=== PATIENT | male | born 1960 ===

== ENCOUNTER 2024-04-23 11:09 | Emergency (ER) | payer OTHER, SELFPAY ==
[2024-04-23] VITALS (8 sets, daily range): BP systolic 148–217; BP diastolic 89–107; PULSE 90–97; RESP 12–21; TEMP 36.4; O2SAT 95–99
--- NOTE | ~2024-04-23 | XR_ITS ---
EXAMINATION: XR chest 1V portable DATE: 04/23/2024 12:31 INDICATION: Hypertension. TECHNIQUE: A single frontal view of the chest was obtained on 2 radiographs. COMPARISON: None. FINDINGS: There is no pneumonia, pleural effusion, or pneumothorax. The heart size is normal. IMPRESSION: 1. No acute cardiopulmonary disease. Reviewed, dictated and finalized at location B.
--- NOTE | 2024-04-23 11:30 | ED.GENADULT ---
HPI - General Adult General Chief complaint: Recheck/Abnormal Lab/Rx Stated complaint: Elevated BP-192/121 at home Time Seen by Provider: 04/23/24 11:30 Source: patient and family Mode of arrival: ambulatory Limitations: no limitations History of Present Illness HPI narrative: 63 YEARS OLD WHITE MALE CAME TO THE ED FROM HOME BY PRIVATE CAR COMPLAINING OF ELEVATED BLOOD PRESSURE OTHERWISE ASYMPTOMATIC. PATIENT DENIES ANY FEVER, CHILLS, NAUSEA, VOMITING, HEADACHE, SHORTNESS OF BREATH, CHEST PAIN, BACK PAIN OR ABDOMINAL PAIN. PATIENT REPORTS QUITE A BIT OF STRESS and trouble sleeping LATELY., AT THE BEDSIDE PATIENT REPORT HIS BLOOD PRESSURE THIS MORNING AT HOME WAS 192/120. Related Data Allergies Allergy/AdvReac Type Severity Reaction Status Date / Time No Known Allergies Allergy Verified 04/23/24 11:10 Review of Systems Review of Systems: All systems reviewed & are unremarkable except as noted in HPI and below Exam Narrative: General appearance: Well-developed, well-nourished Skin: Normal color Head: Normocephalic, nontraumatic Eyes: Clear conjunctiva ENT: Oropharynx normal, ears normal, nose normal Neck: Supple, nontender Chest and respiratory: Airway patent, no respiratory distress, no accessory muscle use Heart: Regular rate/rhythm Abdomen: Soft, nontender, no organomegaly, quiet bowel sounds Vascular: Normal peripheral pulses, normal capillary refill. Musculoskeletal: Normal range of motion, nontender back Neurologic: Alert and oriented ?3, SUPERVISING CHEF is normal as tested, no gross motor deficit Course Vital Signs Vital signs: Vital Signs Temperature 36.4 C 04/23/24 11:12 Pulse Rate 95 04/23/24 11:12 Respiratory Rate 16 04/23/24 11:12 Blood Pressure 217/94 H 04/23/24 11:12 Pulse Oximetry 99 04/23/24 11:12 Temperature 36.4 C 04/23/24 11:12 Pulse Rate 97 04/23/24 13:01 Respiratory Rate 19 04/23/24 13:01 Blood Pressure 160/96 H 04/23/24 13:26 Pulse Oximetry 97 04/23/24 13:01 Medical Decision Making [facility] Narrative Medical decision making narrative: Patient presents with anxiety like symptoms and elevated blood pressure Vital signs showing blood pressure 217/94 Physical examination consistent with restlessness Differential diagnosis anxiety like symptoms, uncontrolled hypertension, electrolyte imbalance, dehydration Blood workup today includes CBC, CMP, troponin, BnP showed hemoglobin of 18.3, patient is aware of that elevation in the past Chest x-ray showed no acute abnormalities EKG on arrival showed normal sinus rhythm, left ventricular hypertrophy and ST-T wave changes, abnormal EKG, Patient received 1 mg of Ativan IV, blood pressure improved, currently at the time of discharge is 152/90. Patient feeling much better Diagnosis anxiety like symptoms, uncontrolled hypertension, insomnia Discharged on clonidine as needed, clonazepam The pt was discharged to home.the pt,s condition upon discharge was fair,education was provided to the pt in reference to the final impression,discharge study results,treatment,prognosis and need for follow up . Vital Signs Vital Signs: Vital Signs Temperature 36.4 C 04/23/24 11:12 Pulse Rate 95 04/23/24 11:12 Respiratory Rate 16 04/23/24 11:12 Blood Pressure 217/94 H 04/23/24 11:12 Pulse Oximetry 99 04/23/24 11:12 Temperature 36.4 C 04/23/24 11:12 Pulse Rate 97 04/23/24 13:01 Respiratory Rate 19 04/23/24 13:01 Blood Pressure 160/96 H 04/23/24 13:26 Pulse Oximetry 97 04/23/24 13:01 Lab Data 04/23/24 11:55 04/23/24 11:55 Labs: Lab Results 04/23/24 Range/Units 11:55 WBC 6.7 (4.5-10.0) K/mm3 RBC 5.74 (4.6-6.20) M/mm3 Hgb 18.3 H (14.0-18.0) g/dL Hct 52.0 (42.0-52.0) % MCV 90.6 (80-100) fl MCH 31.9 (26-34) pg MCHC 35.2 (32-36) g/dl RDW 12.6 (11.5-14.5) % Plt Count 230 (150-375) k/mm3 MPV 9.4 (7.4-10.4) fl Immature Gran % (Auto) 0.4 (0-0.5) % Neut % (Auto) 74.1 H (45.5-73.1) % Lymph % (Auto) 13.6 L (18.3-44.2) % Wood % (Auto) 10.9 H (2.6-8.5) % Eos % (Auto) 0.3 (0-4.4) % Baso % (Auto) 0.7 (0.2-1.2) % Lymph # (Auto) 0.91 (0.9-3.2) K/mm3 Wood # (Auto) 0.7 H (0.1-0.6) K/mm3 Eos # (Auto) 0.0 (0-0.3) K/mm3 Baso # (Auto) 0.1 (0.0-0.1) K/mm3 Abs Immat Gran (auto) 0.03 (0.00-0.031) K/mm3 Absolute Neuts (auto) 5.0 (1.3-6.7) K/mm3 Absolute Nucleated RBC 0.000 (0.0-0.012) K/mm3 Nucleated RBC % 0.0 (0.0-0.2) % PT 12.9 (11.1-14.7) Seconds INR 0.9 APTT 31.5 (22.3-36.8) Seconds Sodium 140 (137-145) mmol/L Potassium 4.0 (3.4-5.0) mmol/L Chloride 100 (98-107) mmol/L Carbon Dioxide 31 H (22-30) mmol/L Anion Gap 9 (4-12) mmol/L BUN 16 (9-20) mg/dL Creatinine 1.21 (0.7-1.3) mg/dL Estim Creat Clear Calc 59 ml/min Estimated GFR > 60 (59 - ) Glucose 95 (65-110) mg/dL Calcium 9.5 (8.4-10.2) mg/dL Total Bilirubin 0.9 (0.2-1.3) mg/dL AST 27 (17-59) U/L ALT 30 (6-50) U/L Alkaline Phosphatase 56 (38-126) U/L Troponin I < 0.012 (0.000-0.034) ng/mL Total Protein 8.0 (6.3-8.2) g/dL Albumin 4.8 (3.5-5.1) g/dL TSH 1.680 (0.465-4.680) uIU/mL Imaging Data Radiologist's impression: Impressions Chest X-Ray 04/23/24 12:33 IMPRESSION: 1. No acute cardiopulmonary disease. ECG Data EKG #1: Attestation: I personally reviewed and interpreted this ECG as follows: ECG completion date: 04/23/24 Interpretation: Normal sinus rhythm at 93 beats per minute, left ventricular hypertrophy and ST T-wave changes, abnormal EKG, no previous EKG available for comparison Critical Care Time Critical Care Time Critical Care Time: No Discharge Plan Discharge Clinical Impression: Polycythemia, Hypertension, Anxiety Patient Disposition: Home, Self-Care Condition: Improved Instructions: Hypertension (ED), Polycythemia Vera (DC) Additional Instructions: RETURN IF SYMPTOMS ARE WORSENING , CALL YOUR FAMILY PHYSICIAN FOR APPOINTMENT, TAKE TYLENOL NEEDED FOR ACHES AND PAIN, CONTINUE HOME MEDICATIONS. Patient Language: Hebrew Prescriptions: New clonidine HCl 0.1 mg tablet extended release 12 hr 0.1 mg PO DAILY Qty: 30 0RF Rx Instructions: TAKE 1 TABLET IF SYSTOLIC BLOOD PRESSURE MORE THAN OR EQUAL 160 EVERY 6 HOUR NEEDED MAXIMUM TWICE A DAY. clonazepam 0.5 mg tablet 0.5 mg PO BID Qty: 10 0RF Follow-up/Referrals: Ricco Asher DO [Primary Care Provider] -
--- NOTE | 2024-04-23 11:39 | ECG_ITS ---
Test Date: 2024-04-23 13:17:50 Measurements Intervals Brea Rate: 93 P: 70 DC: 163 QRS: -45 QRSD: 109 T: 82 QT: 347 QTc: 434 Interpretive Statements SINUS RHYTHM LEFT ANTERIOR FASCICULAR BLOCK [QRS AXIS <= -45, QR IN I, RS IN II] LEFT VENTRICULAR HYPERTROPHY AND ST-T CHANGE [VOLTAGE CRITERIA PLUS ST/T ABNORMALITY] No previous ECG available for comparison Electronically Signed On 04-24-2024 16:39:48 CDT by Timbo Flores M.D.
[2024-04-23 12:04] LABS: Basophils Absolute Auto 0.1 K/mm3 (0.0-0.1); Basophils Percent Auto 0.7 % (0.2-1.2); Eosinophils Percent Auto 0.3 % (0-4.4); Hemoglobin 18.3 g/dL (14.0-18.0); Immature Granulocyte Absolute 0.03 K/mm3 (0.00-0.031); Immature Granulocyte Percent A 0.4 % (0-0.5); Lymphocytes Absolute Auto 0.91 K/mm3 (0.9-3.2); Lymphocytes Percent Auto 13.6 % (18.3-44.2); Mean Corpuscular HGB Conc 35.2 g/dl (32-36); Mean Corpuscular Hemoglobin 31.9 pg (26-34); Mean Corpuscular Volume 90.6 fl (80-100); Mean Platelet Volume 9.4 fl (7.4-10.4); Monocytes Absolute Auto 0.7 K/mm3 (0.1-0.6); Monocytes Percent Auto 10.9 % (2.6-8.5); Neutrophils Percent Auto 74.1 % (45.5-73.1); Platelet Count Result 230 k/mm3 (150-375); Red Blood Count 5.74 M/mm3 (4.6-6.20); Red Cell Distribution Width 12.6 % (11.5-14.5); White Blood Count 6.7 K/mm3 (4.5-10.0)
[2024-04-23] MEDS: LORazepam INJ (*CRX) 2 MG/ML VIAL 1 MG IV PUSH (12:10)
[2024-04-23 12:20] LABS: INR 0.9; Prothrombin Time 12.9 Seconds (11.1-14.7)
[2024-04-23 12:21] LABS: Alanine Aminotransferase 30 U/L (6-50); Albumin Level 4.8 g/dL (3.5-5.1); Alkaline Phosphatase 56 U/L (38-126); Anion Gap 9 mmol/L (4-12); Aspartate Amino Transferase 27 U/L (17-59); Bilirubin,Total 0.9 mg/dL (0.2-1.3); Blood Urea Nitrogen 16 mg/dL (9-20); Calcium 9.5 mg/dL (8.4-10.2); Carbon Dioxide 31 mmol/L (22-30); Chloride 100 mmol/L (98-107); Estimated CRCL calculation 59 ml/min; Estimated Glomerular Filt Rate > 60; Glucose 95 mg/dL (65-110); Partial Thromboplastin Time 31.5 Seconds (22.3-36.8); Sodium 140 mmol/L (137-145)
[2024-04-23 12:32] LABS: Troponin I < 0.012 ng/mL (0.000-0.034)
--- OUTSIDE RECORDS SUMMARY | 2024-04-23 13:04 | XMS_ITS | Referral Summary ---
Author Organization [facility] Address [address] [place] [address] Care Team Providers Care Wood Borer Name Role Phone Unavailable Primary Care Provider Unavailabl e Source Comments [facility],non-[facility] Affiliates and Associated Physician Practices is amultiple site organization consisting of ambulatory clinics and hospital sitesin [place], [place], [place] and [place]. This disclosure is being madepursuant to the Care Everywhere program and may not contain all information available regarding this patient. Last updated 17.[facility] [address] Social History Tobacco Use Types Packs/Day Years Used Date Smoking Tobacco: Never Assessed Sex and Gender Information Value Date Recorded Sex Assigned at Not on file Gender Identity Not on file Sexual Orientation Not on file Plan of Treatment Not on file
--- OUTSIDE RECORDS SUMMARY | 2024-04-23 13:04 | XMS_ITS | Clinical Summary ---
Author Organization [facility] Address [address] [place] [address] Care Team Providers Care Job Compositor Name Role Phone Unavailable Primary Care Provider Unavailabl e Source Comments [facility],non-owned Affiliates and Associated Physician Practices is amultiple site organization consisting of ambulatory clinics and hospital sitesin [place], [place], [place] and [place]. This disclosure is being madepursuant to the Care Everywhere program and may not contain all information available regarding this patient. Last updated 17.[facility] Social History Tobacco Use Types Packs/Day Years Used Date Smoking Tobacco: Never Assessed Sex and Gender Information Value Date Recorded Sex Assigned at Not on file Gender Identity Not on file Sexual Orientation Not on file Plan of Treatment Health Maintenance Due Date Last Done Comments COLOGUARD (AGES 45-75) - COL ON CA SCREENING 1962 COLON MONITORING 1962 COLONOSCOPY - COLON CA SCREENING 1962 CT COLONOGRAPHY - COLON CA SCREENING 1962 Colorectal Cancer Screening 1962 FIT - COLON CA SCREENING 1962 FLEX SIG - COLON CA SCREENING 1962 LIPID TESTING 1962 HIV SCREENING 1977 HEPATITIS C SCREENING 12/15/1980 DTAP/TDAP/TD VACCINES (1 - Tdap) 1981 PNEUMOCOCCAL VACCINE 50+ (1 of 1 - PCV) 2012 ZOSTER VACCINE (1 of 2) 2012 COVID-19 VACCINE ( - 2023-2 5 season) 2023 INFLUENZA VACCINE (#1) 2023 DEPRESSION SCREENING 02/12/2024 Respiratory Syncytial Virus (RSV) Vaccine Pt: or over 60 yrs (1 - 1-dose 75+ series) 2037 HEPATITIS B VACCINE Aged Out No longe r eligible based on patient's age to complete this topic HIB VACCINE Aged Out No longer eligi ble based on patient's age to complete this topic HPV VACCINE Aged Out No longer eligi ble based on patient's age to complete this topic MENINGOCOCCAL (Group B) VACC INE SHARED DECISION-MAKING Aged Out No longer eligibl e based on patient's age to complete this topic MENINGOCOCCAL GROUPS A/C/Y/W VACCINE Aged Out No longer eligible b ased on patient's age to complete this topic PNEUMOCOCCAL VACCINE Aged Out No long er eligible based on patient's age to complete this topic
--- OUTSIDE RECORDS SUMMARY | 2024-04-23 13:04 | XMS_ITS | Patient Health Summary ---
Author Organization [facility] Address [address] [place] [address] Care Team Providers Care Distribution Coordinator Name Role Phone Unavailable Primary Care Provider Unavailabl e Note from [facility],non-owned Affiliates and Associated Physician Practices is amultiple site organization consisting of ambulatory clinics and hospital sitesin [place], [place], [place] and [place]. This disclosure is being madepursuant to the Care Everywhere program and may not contain all information available regarding this patient. Last updated 17.[facility] Social History Tobacco Use Types Packs/Day Years Used Date Smoking Tobacco: Never Assessed Sex and Gender Information Value Date Recorded Sex Assigned at Not on file Gender Identity Not on file Sexual Orientation Not on file Procedures * DERMATOPATHOLOGY(Performed 06/07/2017) Results * DERMATOPATHOLOGY (06/07/2017 12:00 AM CDT) Case Report Dermatopathology Report Case: [id number] Authorizing Provider: Otto Oconnor MD Collected: 06/07/2017 12:00 AM Pathologist: Priyanka Cuevas MD Received: 06/10/2017 11:56 AM Specimens: A) - Skin, left mid cheek B) - Skin, left mid ext FA 4:57 PM CDT DERMATOPATHOLOGY LABORATORY Final Diagnosis Specimen A. SKIN, left mid cheek: SEBORRHEIC KERATOSIS, IRRITATED (L82.0) PRESENT AT MARGIN Specimen B. SKIN, left mid ext FA: ACTINIC KERATOSIS (L57.0) PRESENT AT MARGIN 4:57 PM CDT DERMATOPATHOLOGY LABORATORY Clinical History A-B: R/O ISK, BCC, SCC, Mejia's. Check margins. 4:57 PM CDT DERMATOPATHOLOGY LABORATORY Gross Description Specimen A: Received is one formalin filled container labeled with the patient's name and designated left mid cheek. The specimen consists of a shave biopsy measuring 2n7l8li, the margin is inked green. Jar 0. Specimen B: Received is one formalin filled container labeled with the patient's name and designated left mid ext FA. The specimen consists of a shave biopsy measuring 3z1x0dj, the margin is inked green. Jar 0. 4:57 PM T DERMATOPATHOLOGY LABORATORY Microscopic Description Specimen A. SKIN, left mid cheek: There is acanthosis consisting of fairly uniform squamous cells with eosinophilic cytoplasm and squamous eddies. This lesion is present at the margin of the specimen. Specimen B. SKIN, left mid ext FA: There is focal parakeratosis. The lower half of the epidermis shows disorderly maturation of keratinocytes with nuclear pleomorphism. This lesion is present at the margin of the specimen. 4:57 PM T DERMATOPATHOLOGY LABORATORY Disclaimer An external and internal positive and negative controls are appropriate for the histochemical, immunohistochemical and immunofluorescence stain(s) in this case (if any), except where stated explicitly. The performance characteristics of the stain(s) cited in this report were developed and its performance characteristic determined by the Dermatopathology Laboratory at [facility]. These tests need not be, and therefore are not, approved by the [place] Food and Drug Administration. The tests are used for clinical purposes. Billing Codes Specimen Charges Stain Charges 61187 53043 1 1 4:57 PM CDT DERMATOPATHOLOGY LABORATORY Embedded Images 4:57 PM CDT DERMATOPATHOLOGY LABORATORY Pathology/Cytology TISSUE SPECIMEN FROM SKIN / Unknown 06/07/2017 06/10/2017 11:56 AM CDT Miscellaneous samples (specimen) TISSUE SPECIMEN FROM SKIN / Unknown 06/07/2017 06/10/2017 11:56 AM CDT Otto Oconnor MD LAB - PATHOLOGY/CYTO LOGY ORDERABLES DERMATOPATHOLOGY LABORATORY [facility] - Department of Dermatology [address] [place] [address], 5th Floor Lab [address] [phone]
--- OUTSIDE RECORDS SUMMARY | 2024-04-23 13:04 | XMS_ITS | Encounter Summary ---
Author Organization [facility] Address [address] [place] [address] Care Team Providers Care Four Slide Machine Operator Name Role Phone Unavailable Primary Care Provider Unavailabl e Encounter Details Date Type Department Care Team (Late st Contact Info) Description 06/10/2017 Lab Requisition [facility] Care DermPath Lab [address] [place] [address] Otto Oconnor MD [address] [place] [address] Social History Tobacco Use Types Packs/Day Years Used Date Smoking Tobacco: Never Assessed Sex and Gender Information Value Date Recorded Sex Assigned at Not on file Gender Identity Not on file Sexual Orientation Not on file documented as of this encounter Plan of Treatment Not on file documented as of this encounter Procedures Procedure Name Priority Date/Time Associated Diagnosis Comments DERMATOPATHOLOGY Routine 06/07/2017 12:0 0 AM CDT documented in this encounter Results * DERMATOPATHOLOGY (06/07/2017 12:00 AM CDT) Case Report Dermatopathology Report Case: [id number] Authorizing Provider: Otto Oconnor MD Collected: 06/07/2017 12:00 AM Pathologist: Priyanka Cuevas MD Received: 06/10/2017 11:56 AM Specimens: A) - Skin, left mid cheek B) - Skin, left mid ext FA 8 4:57 PM CDT DERMATOPATHOLOGY LABORATORY Final Diagnosis Specimen A. SKIN, left mid cheek: SEBORRHEIC KERATOSIS, IRRITATED (L82.0) PRESENT AT MARGIN Specimen B. SKIN, left mid ext FA: ACTINIC KERATOSIS (L57.0) PRESENT AT MARGIN 8 4:57 PM CDT DERMATOPATHOLOGY LABORATORY Clinical History A-B: R/O ISK, BCC, SCC, Mejia's. Check margins. 4:57 PM CDT DERMATOPATHOLOGY LABORATORY Gross Description Specimen A: Received is one formalin filled container labeled with the patient's name and designated left mid cheek. The specimen consists of a shave biopsy measuring 2m4a0dc, the margin is inked green. Jar 0. Specimen B: Received is one formalin filled container labeled with the patient's name and designated left mid ext FA. The specimen consists of a shave biopsy measuring 1q7a0pc, the margin is inked green. Jar 0. 4:57 PM CDT DERMATOPATHOLOGY LABORATORY Microscopic Description Specimen A. SKIN, [...] the margin of the specimen. 4:57 PM CDT DERMATOPATHOLOGY LABORATORY Disclaimer An external and internal positive and negative controls are appropriate for the histochemical, immunohistochemical and immunofluorescence stain(s) in this case (if any), except where stated explicitly. The performance characteristics of the stain(s) cited in this report were developed and its performance characteristic determined by the Dermatopathology Laboratory at [facility]. These tests need not be, and therefore are not, approved by the [place] Food and Drug Administration. The tests are used for clinical purposes. Billing Codes Specimen Charges Stain Charges 64472 75553 1 1 4:57 PM CDT DERMATOPATHOLOGY LABORATORY Embedded Images 4:57 PM CDT DERMATOPATHOLOGY LABORATORY Pathology/Cytology TISSUE SPECIMEN FROM SKIN / Unknown 06/07/2017 06/10/2017 11:56 AM CDT Miscellaneous samples (specimen) TISSUE SPECIMEN FROM SKIN / Unknown 06/07/2017 06/10/2017 11:56 AM CDT Otto Oconnor MD LAB - PATHOLOGY/CYTO LOGY ORDERABLES DERMATOPATHOLOGY LABORATORY [facility] - Department of Dermatology [address], [address]th [place] [address], [facility] [phone] documented in this encounter Visit Diagnoses Not on filedocumented in this encounter
--- NOTE | 2024-04-23 13:23 | PC.NURSE ---
when ekg order was placed this RN asked RAPHAEL Gross tech if they could get ekg who agreed to task. this RN noted the task was not completed and asked endo tech again if they could complete it. endo tech agreed and ekg was performed then.
--- OUTSIDE RECORDS SUMMARY | 2024-04-23 13:29 | XMS_ITS | Encounter Summary ---
Author Organization [facility] Address [address] [address] Care Team Providers Care Answerer Name Role Phone Unavailable Primary Care Provider Unavailabl e Encounter Details Date Type Department Care Team (Late st Contact Info) Description 06/10/2017 Lab Requisition [facility] Care DermPath Lab [address] [place] [address] Otto Oconnor MD [address] [place] [address] Social History Tobacco Use Types [...] AM CDT) Case Report Dermatopathology Report Case: [id number] Authorizing Provider: Otto Oconnor MD Collected: 06/07/2017 [...] specimen consists of a shave biopsy measuring 1w6u5sw, the margin is inked green. Jar 0. Specimen B: Received is one formalin filled container labeled with the patient's name and designated left mid ext FA. The specimen consists of a shave biopsy measuring 3v7d8za, the margin is inked green. Jar 0. [...] determined by the Dermatopathology Laboratory at [facility]. These tests need not be, and therefore are not, approved by the [place] Food and Drug Administration. The tests are used for clinical purposes. Billing Codes Specimen Charges Stain Charges 77403 62407 1 1 4:57 PM CDT DERMATOPATHOLOGY LABORATORY Embedded Images 4:57 PM CDT DERMATOPATHOLOGY LABORATORY Pathology/Cytology TISSUE SPECIMEN FROM SKIN / Unknown 06/07/2017 06/10/2017 11:56 AM CDT Miscellaneous samples (specimen) TISSUE SPECIMEN FROM SKIN / Unknown 06/07/2017 06/10/2017 11:56 AM CDT Otto Oconnor MD LAB - PATHOLOGY/CYTO LOGY ORDERABLES DERMATOPATHOLOGY LABORATORY [facility] - Department of Dermatology [address], [address]th [place] [address], [facility] [phone] documented in this encounter Visit Diagnoses Not on filedocumented in this encounter
--- OUTSIDE RECORDS SUMMARY | 2024-04-23 13:29 | XMS_ITS | Patient Health Summary ---
Author Organization [facility] [employer] Address [address] [place] [address] Care Team Providers Care Lead Simulation Modeling Engineer Name Role Phone Unavailable Primary Care Provider Unavailabl e Note from [facility] [employer] [facility] [employer],non-owned Affiliates and Associated Physician Practices is amultiple site organization consisting of ambulatory clinics and hospital sitesin [place], [place], [place] and [place]. This disclosure is being madepursuant to the Care Everywhere program and may not contain all information available regarding this patient. Last updated 17.[facility] [employer] Social History Tobacco Use Types Packs/Day Years Used Date Smoking Tobacco: Never Assessed Sex and Gender Information Value Date Recorded Sex Assigned at Not on file Gender Identity Not on file Sexual Orientation Not on file Procedures * DERMATOPATHOLOGY(Performed 06/07/2017) Results * DERMATOPATHOLOGY (06/07/2017 12:00 AM CDT) Case Report Dermatopathology Report Case: [id number] Authorizing Provider: Otto Oconnor MD Collected: 06/07/2017 [...] specimen consists of a shave biopsy measuring 1y9o6ay, the margin is inked green. Jar 0. Specimen B: Received is one formalin filled container labeled with the patient's name and designated left mid ext FA. The specimen consists of a shave biopsy measuring 1f9v6qg, the margin is inked green. Jar 0. [...] characteristic determined by the Dermatopathology Laboratory at [facility]. These tests need not be, and therefore are not, approved by the [place] Food and Drug Administration. The tests are used for clinical purposes. Billing Codes Specimen Charges Stain Charges [id number] 1 1 4:57 PM CDT DERMATOPATHOLOGY LABORATORY Embedded Images 4:57 PM CDT DERMATOPATHOLOGY LABORATORY Pathology/Cytology TISSUE SPECIMEN FROM SKIN / Unknown 06/07/2017 06/10/2017 11:56 AM CDT Miscellaneous samples (specimen) TISSUE SPECIMEN FROM SKIN / Unknown 06/07/2017 06/10/2017 11:56 AM CDT Otto Oconnor MD LAB - PATHOLOGY/CYTO LOGY ORDERABLES DERMATOPATHOLOGY LABORATORY [facility] - Department of Dermatology [address] [place] [address], 5th Floor Lab [address] [phone]
--- OUTSIDE RECORDS SUMMARY | 2024-04-23 13:29 | XMS_ITS | Referral Summary ---
Author Organization [facility] Address [address] [place] [address] Care Team Providers Care Paperboard Boxes Estimator Name Role Phone Unavailable Primary Care Provider Unavailabl e Source Comments [facility],non-[facility] Affiliates and Associated Physician Practices is amultiple site organization consisting of ambulatory clinics and hospital sitesin [place], [place], [place] and [place]. This disclosure is being madepursuant to the Care Everywhere program and may not contain all information available regarding this patient. Last updated 17.[facility] Social History Tobacco Use Types Packs/Day Years Used Date Smoking Tobacco: Never Assessed Sex and Gender Information Value Date Recorded Sex Assigned at Not on file Gender Identity Not on file Sexual Orientation Not on file Plan of Treatment Not on file
--- OUTSIDE RECORDS SUMMARY | 2024-04-23 13:29 | XMS_ITS | Clinical Summary ---
Author Organization [facility] [employer] Address [address] [place] [address] Care Team Providers Care Digital Producer Name Role Phone Unavailable Primary Care Provider Unavailabl e Source Comments [facility] [employer],non-owned Affiliates and Associated Physician Practices is amultiple site organization consisting of ambulatory clinics and hospital sitesin [place], [place], [place] and [place]. This disclosure is being madepursuant to the Care Everywhere program and may not contain all information available regarding this patient. Last updated 17.[facility] Social History Tobacco Use Types Packs/Day Years [...]
== END 2024-04-23 13:20 | disposition home or self-care (01) ==
PROVIDERS: Emergency Provider Emergency Medicine; PCP Internal Medicine
DX: I10 Essential (primary) hypertension (principal); F41.9 Anxiety disorder, unspecified; D75.1 Secondary polycythemia
CPT/HCPCS: 36415; 71045; 80053; 84443; 84484; 85025; 85610; 85730; 93005; 96374; 99284; J2060